=== PATIENT | male | born 1995 | race Caucasian/White ===

== ENCOUNTER 2021-01-30 15:45 | Emergency (ER) | payer SELFPAY ==
[2021-01-30 15:55] VITALS: BP 131/64; PULSE 86; TEMP 98; BMI 29.9
[2021-01-30] MEDS ORDERED: IBUPROFEN 600 MG TABLET (FP) PO ONE ×2 (16:59→17:09)
== END 2021-01-30 18:00 | disposition home or self-care (01) ==
LOC: JERFT 15:45
DX: M25.562 Pain in left knee (principal)
CPT/HCPCS: 73562-TC-LT-FY; 99283-25